=== PATIENT | female | born 1950 | race Two or more races ===

== ENCOUNTER 2024-04-05 04:20 | Inpatient (IN) | payer OTHER ==
[~2024-04-05] VITALS: Ht 167.6 cm; Wt 122.8 kg
[2024-04-05] MEDS: LABETALOL HCL 20 MG/4 ML VL IV ONE (05:07)
--- NOTE | 2024-04-05 05:18 | ED.PDOC ---
History of Present Illness HPI Comments 74 y/o F, with a Hx of uncontrolled HTN, morbid obesity, and hysterectomy, presents with c/o partial urinary retention, hematuria, dysuria, and constipation, today. Patient reports unprovoked onset of symptoms, yesterday, that has been persisting since. Patient endorses on both having a sensation of being unable to completely empty her bladder in addition to sensation to have a bowel movement but being unable to produce one. Patient, upon arrival to ED triage, was hypertensive, with a blood pressure of 235/103. Patient states on no medication placement or use, due to not seeing medical providers frequently by personal choice. Patient denies having any chest or flank pain, nausea, vomi ting, diarrhea, fever, chills, headache, vision or speech changes, or other associated symptoms or modifiers at this time. Chief Complaint: Urinary Time Seen by MD: 04:45 Reviewed Notes: Nurses Notes, Medications, Allergies Allergies: Coded Allergies: NO KNOWN ALLERGIES (Unverified , 04/05/24) Information Source: Patient Mode of Arrival: Ambulatory Severity: Moderate Timing: Days Duration: Since onset Prehospital treatment: None Past Medical History PAST MEDICAL HISTORY: HTN Past Medical History (Other): morbid obesity Surgical History: Hysterectomy [employer] History: Denies all [employer] Hx Family History Family History: Unknown Social History Smoker: Non-Smoker Alcohol: Denies ETOH Use Drugs: Denies Drug Use Lives In: Home Constitutional: denies: chills, diaphoresis, fatigue, fever, malaise, sweats, weakness, others EENTM: denies: blurred vision, double vision, ear bleeding, ear discharge, ear drainage, ear pain, ear ringing, eye pain, eye redness, hearing loss, mouth pain, mouth swelling, nasal discharge, nose bleeding, nose congestion, nose pain, photophobia, tearing, throat pain, throat swelling, voice changes, others Respiratory: denies: cough, hemoptysis, orthopnea, SOB at rest, shortness of breath, SOB with excertion, stridor, wheezing, others Cardiovascular: denies: chest pain, dizzy spells, diaphoresis, Dyspnea on exertion, edema, irregular heart beat, left arm pain, lightheadedness, palpitations, PND, syncope, others Gastrointestinal: reports: constipated; denies: abdomen distended, abdominal pain, blood streaked bowels, diarrhea, dysphagia, difficulty swallowing, hematemesis, melena, nausea, poor appetite, poor fluid intake, rectal bleeding, rectal pain, vomiting, others Genitourinary: reports: dysuria, hematuria, others (partial urinary retention ); denies: abnormal vagina bleeding, burning, dyspareunia, flank pain, frequency, incontinence, pain, , vagina discharge, urgency Neurological: denies: dizziness, fainting, headache, left sided numbness, left sided weakness, numbness, paresthesia, pre-existing deficit, right sided numbness, right sided weakness, seizure, speech problems, tingling, tremors, weakness, others Musculoskeletal: denies: back pain, gout, joint pain, joint swelling, muscle pain, muscle stiffness, neck pain, others Integumetry: denies: bruises, change in color, change in hair/nails, dryness, laceration, lesions, lumps, rash, wounds, others Allergic/Immunocompromised: denies: Difficulty Healing, Frequent Infections, Hives, Itching, others Hematologic/Lymphatic: denies: anemia, blood clots, easy bleeding, easy bruising, swollen glands, others Endocrine: denies: excessive hunger, excessive sweating, excessive thirst, excessive urination, flushing, intolerance to cold, intolerance to heat, unexplained weight gain, unexplained weight loss, others Psychiatric: denies: anxiety, bipolar disorder, depression, hopeless, panic disorder, schizophrenia, sleepless, suicidal, others All Other Systems: Reviewed and Negative Physical Exam General Appearance: Moderate Distress, Obese HEENT: Normal ENT Inspection, Pharynx Normal, TMs Normal Neck: Full Range of Motion, Non-Tender, Normal, Normal Inspection Respiratory: Chest Non-Tender, Lungs Clear, No Accessory Muscle Use, No Respiratory Distress, Normal Breath Sounds Cardiovascular: No Edema, No JVD, No Murmur, No Gallop, Normal Peripheral Pulses, Regular Rate/Rhythm Breast Exam: Deferred Gastrointestinal: No Organomegaly, No Pulsatile Mass, Normal Bowel Sounds, Soft, Suprapubic (tenderness), Tenderness (suprapubic area ) Genitalia: Deferred Pelvic: Deferred Rectal: Deferred Extremities: No calf tenderness, Normal capillary refill, Normal inspection, Normal range of motion, Non-tender, No pedal edema Musculoskeletal : Apperance: Normal Neurologic: Alert, plaster pattern caster II-XII nml as Tested, No Motor Deficits, Normal Affect, Normal Mood, No Sensory Deficits Cerebellar Function: Normal Reflexes: Normal Skin: Dry, Normal Color, Warm Lymphatic: No Adenopathy Was a procedure done? Was a procedure done?: No EKG EKG : Pulse Rate (adult): 78 [place]: Normal Cardiac Rhythm: NSR Block: LBBB Hypertrophy: LAE ST: Normal Differential Dx Considerations may include: HTN emergency, uncontrolled HTN, cystitis, pyelonephritis, constipation X-Ray, Labs, Meds, VS Vital Signs Date Time Temp Pulse Resp B/P (MAP) Pulse Ox O2 Delivery O2 Flow Rate FiO2 04/05/24 05:20 223/79 04/05/24 05:18 78 04/05/24 05:15 78 04/05/24 05:07 105 249/109 04/05/24 04:57 98.8 106 14 249/109 (155) 94 98.8 04/05/24 04:30 98.9 113 20 235/103 (147) 97 Current Medications Medications (Trade) Dose Ordered Sig/Daron Route Start Time Stop Time Status Last Admin Labetalol HCl (Labetalol HCl) 20 mg ONCE ONCE IV 04/05/24 05:15 04/05/24 05:16 DC 04/05/24 05:07 Fentanyl Citrate 100 mcg ONCE ONCE IV 04/05/24 05:15 04/05/24 05:16 DC 04/05/24 05:20 Labs are pending including alcohol level. Head CT and abdominal CT are pending. The patient will be endorsed to Dr. Vasquez. Time of 1ST Reevaluation: 05:15 Reevaluation 1ST: Unchanged Patient Education/Counseling: Diagnosis, Treatment Family Education/Counseling: No Family Present Departure 1 Departure Time of Disposition: 05:48 Impression: Primary Impression: Altered level of consciousness Additional Impressions: Metabolic encephalopathy Hypertension Qualified Codes: I10 - Essential (primary) hypertension Abdominal distention Disposition: 30 STILL A PATIENT Condition: Guarded Critical Care Note Critical Care Time?: Yes (35 min-critical care time only) Stability Stability form required: No Heart Score Heart Score: Heart Score Response (Comments) Value History Slightly Suspicious 0 EKG N/A 0 Age >65 2 Risk Factors 1 or 2 risk factors 1 Troponin Normal limit 0 Total 3 I personally scribed for SONIA SORAINO MD ([email or web address]) on 04/05/24 at 05:18. Electronically submitted by Ra Mccain ([email or web address]). SONIA SORIANO MD Apr 05, 2024 05:18
[2024-04-05] MEDS: fentaNYL CITRATE 100 MCG/2 ML VL IV ONE (05:20)
--- NOTE | 2024-04-05 05:52 | DVH ---
CHEST RADIOGRAPH Indication: htn Technique: Single frontal view of the chest was obtained COMPARISON: None FINDINGS: Lines and Tubes: None Lungs: Clear Pleura: No effusion. No pneumothorax. Cardiomediastinal contours: Unremarkable Bones: Unremarkable IMPRESSION: No acute disease.
[2024-04-05 06:04] VITALS: PULSE 64; RESP 16; O2SAT 97
--- NOTE | 2024-04-05 06:21 | DVH ---
Exam: CT CT AB PEL WO CON-NO ORAL OR IV History: Constipation/ urinary retention Comparison Study: None available at time of dictation. Technique: Multidetector spiral CT of the abdomen and pelvis was performed from lung bases to pubic s ymphysis. Imaging was performed without intravenous contrast. Coronal and sagittal multiplanar refor mats were obtained from the axial data set by the technologist. Radiation Dose : 1. Abdomen/Pelvis: CTDIvol 26.6 mGy, DLP 1429.6 mGy*cm. Findings: Evaluation of vasculature and solid organs is limited due to lack of intravenous contrast use. Lung Bases: Lung bases are clear. Visualized portions of the heart and pericardium are unremarkable. Liver: The liver is normal in size. No focal lesions. Gallbladder and Biliary Tree: The gallbladder is unremarkable. No intrahepatic or extrahepatic bilia ry ductal dilatation. Spleen: Unremarkable Pancreas: The pancreas is grossly unremarkable. Adrenal Glands: Unremarkable Kidneys: There is moderate left and mild right hydroureteronephrosis. No intrarenal stones. GI tract: The stomach is grossly normal in appearance. No evidence of small bowel wall thickening or abnormal dilatation to suggest bowel obstruction. Sigmoid diverticulosis without acute diverticuliti s. Please note that the colon is otherwise not evaluated for mass without intravenous contrast. The appendix is not visualized, however no inflammatory changes in the right lower quadrant to suggest ac mary appendicitis. Peritoneum/mesentery/retroperitoneum. No evidence of free intraperitoneal air. No ascites. Lymph nodes: Enlarged left external iliac lymph node measuring 1.8 cm. There are enlarged retroperito gabriel lymph nodes, measuring up to 1.5 cm in short axis. Abdominal Wall: Unremarkable. Vasculature: The visualized abdominal aorta is normal in size and caliber. Evaluation of abdominal a nd pelvic vessels is limited due to lack of intravenous contrast. Urinary Bladder: Hyperdense mass noted in the posterior urinary bladder measuring 5.1 by 5.6 cm. The more superficial portion of the mass appears to be higher in density. Pelvic Organs: Status post hysterectomy. Musculoskeletal: No aggressive focal bony lesions, acute fractures or dislocation. IMPRESSION: 1. 5.6 cm dense mass in the urinary bladder worrisome for malignancy. The more superficial portion of the mass measures higher attenuation and may reflect hemorrhage. CT of the abdomen pelvis with intr avenous contrast and with delayed /excretory phase imaging is recommended to further assess the urina ry bladder. 2. Bilateral hydroureteronephrosis, left slightly greater than right. 3. Bulky retroperitoneal and enlarged left external iliac chain lymph node. These could be metastati c in etiology. If a contrast-enhanced CT does not reveal the source of any malignancy, a PET-CT is st rongly recommended for further evaluation.
--- NOTE | 2024-04-05 06:22 | ECG ---
[facility] Test Date: 2024-04-05 Test Time: 05:15:47 Pat Name: DANN THOMPSON Department: ED Room: Gender: F Distribution Operations Supervisor: MATT : 1950 Requested By: SONIA SORIANO Order Number: [id number] Reading MD: Al Alcaraz Measurements Intervals [place] Rate: 78 P: 66 RI: 194 QRS: 5 QRSD: 158 T: 175 QT: 454 QTc: 518 Interpretive Statements Sinus rhythm Probable left atrial enlargement Left bundle branch block Electronically Signed On 04-05-2024 8:29:14 PST by Al Alcaraz Please click the below link to view image of tracing.
[2024-04-05 06:39] LABS: INR 1.03 (0.9-1.15); Partial Thromboplastin Time 27.3 SEC (24.5-34.5); Prothrombin Time 10.9 sec (9.3-11.8)
[2024-04-05 06:51] LABS: Alanine Aminotransferase 11 U/L (7-40); Albumin 4.2 g/dL (3.2-4.8); Alkaline Phosphatase 78 U/L (46-116); Aspartate Aminotransferase 16 U/L (13-40); BUN/Creatinine Ratio 16.5 (10.0-20.0); Bilirubin, Total 0.6 mg/dL (0.2-1.0); Blood Urea Nitrogen 31 mg/dL (9-23); Calcium 9.7 mg/dL (8.7-10.4); Chloride 108 mmol/L (98-107); Glucose 178 mg/dL (74-106); Potassium 3.8 mmol/L (3.5-5.1); Sodium 138 mmol/L (136-145); Total Protein 7.5 g/dL (5.7-8.2)
[2024-04-05 06:57] LABS: Anion Gap 11 (5-15); Carbon Dioxide 19 mmol/L (20-31)
[2024-04-05 07:06] LABS: Basophils # (auto) 0 10 ^3/uL (0-0.2); Basophils % (auto) 0.4 % (0.0-2.0); Eosinophils # (auto) 0 10 ^3/uL (0-0.8); Hemoglobin 12.9 g/dL (12.2-16.2); Lymphocytes # (auto) 0.6 10 ^3/uL (0.4-5.4); Lymphocytes % (auto) 5.7 % (10.0-50.0); Mean Corpuscular Hemoglobin 31.2 pg (28.0-32.0); Mean Corpuscular Hgb Conc. 33.9 g/dL (32.0-36.0); Monocytes # (auto) 0.5 10 ^3/uL (0-1.3); Monocytes % (auto) 4.2 % (0.0-12.0); Neutrophils # (auto) 9.9 10 ^3/uL (1.6-8.6); Neutrophils % (auto) 89.7 % (37.0-80.0); Platelet Count (auto) 321 10^3/uL (140-450); Red Blood Cells 4.13 10^6/uL (4.0-5.20); White Blood Cell 11.1 10^3/uL (4.4-10.8)
[2024-04-05 07:27] LABS: Blood Alcohol < 3.0 mg/dL (<10)
[2024-04-05 07:50] VITALS: PULSE 71; RESP 19; O2SAT 96
--- NOTE | 2024-04-05 08:52 | ED.PDOC ---
Departure 1 Departure Time of Disposition: 08:50 (Patient with worsening ams, new malignancy. Will admit patient for further workup.) Impression: Primary Impression: Altered level of consciousness Additional Impressions: Abdominal distention Metabolic encephalopathy Hypertension Qualified Codes: I10 - Essential (primary) hypertension Hematuria Qualified Codes: R31.0 - Gross hematuria Malignancy Disposition: 09 ADMITTED INPATIENT Admit to: Med Surg Condition: Serious ALISSA AUGUSTINE MD Apr 05, 2024 08:52
--- NOTE | 2024-04-05 09:28 | DVH ---
EXAM: CT HEAD WITHOUT CONTRAST HISTORY: ams COMPARISON: None TECHNIQUE: Axial images were obtained and reformatted in coronal and sagittal planes. All CT scans at this medical facility are performed using dose modulation techniques as appropriate t o a performed exam including the following: Automated exposure control was utilized; adjustment of th e MA and/or KV according to patient size; and use of iterative reconstruction technique. CT Dose: CTDI volume is 62.53 mGy. Dose-length product is 1107.11 mGy*cm FINDINGS: Supratentorial Region: No evidence for large acute territorial ischemia. No intracranial hemorrhage is noted. Confluent white matter hypoattenuating foci are noted bilaterally, which typically reflect chronic microvascular ischemic changes. Posterior Fossa: No acute abnormality. Brainstem: Unremarkable. Sellar/Suprasellar Region: Unremarkable. Ventricles, Cisterns, Sulci: Age-appropriate. Orbits: Unremarkable. Paranasal Sinuses: Unremarkable. Mastoid Air Cells: Unremarkable. Vasculature: Unremarkable. Bones/Soft Tissues: No acute abnormality. Other: None. IMPRESSION: 1. No acute intracranial process.
[2024-04-05] MEDS ORDERED: ACETAMINOPHEN 325 MG TAB PO PRN (11:15)
[2024-04-05] MEDS ORDERED: DOCUSATE SOD 100 MG CAP PO PRN (11:15)
[2024-04-05] MEDS ORDERED: MORPHINE SULFATE INJ 2 MG/ml SYRG IV PRN ×2 (11:15→12:15)
[2024-04-05] MEDS ORDERED: NITROGLYCERIN 0.4 MG SL TAB SL PRN (11:15)
[2024-04-05 11:31] LABS: Urine Bacteria None Seen /hpf (None Seen)
[2024-04-05] MEDS: POLYETHYLENE GLYCOL 17 GM PWDR PO SCH (12:23)
[2024-04-05] MEDS: OXYBUTYNIN CHL 5 MG TAB PO SCH (12:23)
[2024-04-05] MEDS: ONDANSETRON HCL 4 MG/2 ML VIAL IV PRN (12:23)
[2024-04-05] MEDS: MORPHINE SULFATE INJ 2 MG/ml SYRG IV PRN (12:24)
[2024-04-05 12:29] LABS: Urine Blood 3+ /uL (Negative); Urine Clarity Ex.Turbid (Clear); Urine Color Red (Yellow); Urine Protein, UAD 2+ (Negative); Urine Specific Gravity 1.015 (1.001-1.035); Urine Urobilinogen Normal (Negative); Urine WBC 344 /hpf (0 - 5)
--- NOTE | 2024-04-05 12:30 | DVHINCON2 ---
Date of service: Apr 05, 2024 Referring Physician Tegan Reason for Consultation gross hematuria History of Present Illness History Source: Patient, Family, RN Notes, MD Notes Exam Limitations: No limitations HPI 74 yo female c/o dysuria, hematuria and constipation for the past few days. A judge was placed be ER staff. Pt requires CBI so I exchanged for a 20F hematuria catheter which was moderately difficult to place due to urethral stenosis. I manually irrigated out all clots with sterile water. Pt was then started on CBI. Urine cleared rapidly. She is experiencing discomfort at the urethra. She will be medicated for pain, ANTONIO Lao at the bedside. No hx of malignancy per patient. Denies recurrent UTIs. Does not take anticoagulants. Past Medical History Cardiac: HTN Past Surgical History: Hysterctomy Smoker: No Hx (Negative) Alocohol: None Drugs: None Domestic Violence: Neg Review of Systems Genitourinary: Dysuria, Hematuria, Pain H&P Exam Vital Signs Vital Signs Date Time Temp Pulse Resp B/P (MAP) Pulse Ox O2 Delivery O2 Flow Rate FiO2 04/05/24 10:01 68 97 204/124 (150) 17 04/05/24 07:50 Room Air* 0 21 04/05/24 04:57 98.8 98.8 General Appeara: Well developed, Well nourished, Normal Appearance, Mild dist ress, Obese Pulmonary/Respiratory: Normal inspection, Normal breath sounds, Chest non- tender, Lungs clear Cardiovascular/Chest: Normal inspection, Regular rate, Normal Rhythm Abdominal Exam: Normal bowel sounds, Soft, No tenderness, No hepatospenomegaly, No masses Rectal Exam: Deferred Back Exam: Normal inspection Pelvic Exam: External exam normal, Other (urethral stenosis) Neuro/Mental St: Alert, Oriented Appearance: Appropriate appearance, Appropriate insight Eye contact/ Speech: Cooperative, Good eye contact, Normal speech Skin Exam: Normal inspection, Normal color, Warm/dry Labs/Xrays [place] [id number] Ph: [phone] DIAGNOSTIC IMAGING Diagnostic Imaging Report : [id number] Signed PATIENT: DANN THOMPSON ACCT: [id number] UNIT: [id number] : 1950 LOC: ER ROOM / BED: / AGE / SEX: 74 / F ADM STATUS: REG ER SERVICE 1095 ORDERING PHYSICIAN: SONIA SORIANO MD PROCEDURE(s): ABPL - CT AB PEL WO CON-NO ORAL OR IV REASON: constipation/ urinary retention ORDER NUMBER(s): [id number], ACCESSION NUMBER(s): [id number] Exam: CT CT AB PEL WO CON-NO ORAL OR IV History: Constipation/ urinary retention Comparison Study: None available at time of dictation. Technique: Multidetector spiral CT of the abdomen and pelvis was performed from lung bases to pubic symphysis. Imaging was performed without intravenous contrast. Coronal and sagittal multiplanar reformats were obtained from the axial data set by the technologist. Radiation Dose : 1. Abdomen/Pelvis: CTDIvol 26.6 mGy, DLP 1429.6 mGy*cm. Findings: Evaluation of vasculature and solid organs is limited due to lack of intravenous contrast use. Lung Bases: Lung bases are clear. Visualized portions of the heart and pericardium are unremarkable. Liver: The liver is normal in size. No focal lesions. Gallbladder and Biliary Tree: The gallbladder is unremarkable. No intrahepatic or extrahepatic biliary ductal dilatation. Spleen: Unremarkable Pancreas: The pancreas is grossly unremarkable. Adrenal Glands: Unremarkable Kidneys: There is moderate left and mild right hydroureteronephrosis. No intrarenal stones. GI tract: The stomach is grossly normal in appearance. No evidence of small bowel wall thickening or abnormal dilatation to suggest bowel obstruction. Sigmoid diverticulosis without acute diverticulitis. Please note that the colon is otherwise not evaluated for mass without intravenous contrast. The appendix is not visualized, however no inflammatory changes in the right lower quadrant to suggest acute appendicitis. Peritoneum/mesentery/retroperitoneum. No evidence of free intraperitoneal air. No ascites. Lymph nodes: Enlarged left external iliac lymph node measuring 1.8 cm. There are enlarged retroperitoneal lymph nodes, measuring up to 1.5 cm in short axis. Abdominal Wall: Unremarkable. Vasculature: The visualized abdominal aorta is normal in size and caliber. Evaluation of abdominal and pelvic vessels is limited due to lack of intravenous contrast. Urinary Bladder: Hyperdense mass noted in the posterior urinary bladder measuring 5.1 by 5.6 cm. The more superficial portion of the mass appears to be higher in density. Pelvic Organs: Status post hysterectomy. Musculoskeletal: No aggressive focal bony lesions, acute fractures or dislocation. IMPRESSION: 1. 5.6 cm dense mass in the urinary bladder worrisome for malignancy. The more superficial portion of the mass measures higher attenuation and may reflect hemorrhage. CT of the abdomen pelvis with intravenous contrast and with delayed /excretory phase imaging is recommended to further assess the urinary bladder. 2. Bilateral hydroureteronephrosis, left slightly greater than right. 3. Bulky retroperitoneal and enlarged left external iliac chain lymph node. These could be metastatic in etiology. If a contrast-enhanced CT does not reveal the source of any malignancy, a PET-CT is strongly recommended for further evaluation. ATED BY: NEMO ARANA MD DICTATED DATE/TIME: 04/05/24618 SIGNED BY: NEMO ARANA MD SIGNED DATE/TIME: 04/05/24618 CC: Labs Test 04/05/24 08:24 04/05/24 05:59 04/05/24 05:20 Range/Units Troponin I High Sensitivity 142 *H </=34 ng/L White Blood Count 11.1 H 4.4-10.8 10^3/uL Red Blood Count 4.13 4.0-5.20 10^6/uL Hemoglobin 12.9 12.2-16.2 g/dL Hematocrit 38.0 36.0-46.0 % Mean Corpuscular Volume 92.0 80.0-100.0 fL Mean Corpuscular Hemoglobin 31.2 28.0-32.0 pg Mean Corpuscular Hemoglobin Concent 33.9 32.0-36.0 g/dL Red Cell Distribution Width 14.0 11.8-14.3 % Platelet Count 321 140-450 10^3/uL Mean Platelet Volume 8.8 6.9-10.8 fL Neutrophils (%) (Auto) 89.7 H 37.0-80.0 % Lymphocytes (%) (Auto) 5.7 L 10.0-50.0 % Monocytes (%) (Auto) 4.2 0.0-12.0 % Eosinophils (%) (Auto) 0.0 0.0-7.0 % Basophils (%) (Auto) 0.4 0.0-2.0 % Neutrophils # (Auto) 9.9 H 1.6-8.6 10 ^3/uL Lymphocytes # (Auto) 0.6 0.4-5.4 10 ^3/uL Monocytes # (Auto) 0.5 0-1.3 10 ^3/uL Eosinophils # (Auto) 0 0-0.8 10 ^3/uL Basophils # (Auto) 0 0-0.2 10 ^3/uL Nucleated Red Blood Cells 0.0 % Prothrombin Time 10.9 9.3-11.8 sec Prothrombin Time INR 1.03 0.9-1.15 Activated Partial Thromboplast Time 27.3 24.5-34.5 SEC Sodium Level 138 136-145 mmol/L Potassium Level 3.8 3.5-5.1 mmol/L Chloride Level 108 H 98-107 mmol/L Carbon Dioxide Level 19 L 20-31 mmol/L Anion Gap 11 5-15 Blood Urea Nitrogen 31 H 9-23 mg/dL Creatinine 1.88 H 0.550-1.02 mg/dL Glomerular Filtration Rate Calc 28 >90 mL/min BUN/Creatinine Ratio 16.5 10.0-20.0 Serum Glucose 178 H 74-106 mg/dL Calcium Level 9.7 8.7-10.4 mg/dL Total Bilirubin 0.6 0.2-1.0 mg/dL Aspartate Amino Transferase (AST) 16 13-40 U/L Alanine Aminotransferase (ALT) 11 7-40 U/L Alkaline Phosphatase 78 46-116 U/L B-Type Natriuretic Peptide 236.94 0-100 pg/mL Total Protein 7.5 5.7-8.2 g/dL Albumin 4.2 3.2-4.8 g/dL Plasma/Serum Blood Alcohol < 3.0 <10 mg/dL Assessment/Plan Problem List: (1) Gross hematuria (2) Hematuria (3) Malignancy (4) Abdominal distention (5) Hypertension (6) Altered level of consciousness (7) Metabolic encephalopathy Plan [address] way judge CBI monitor H&H medically optimize. will need cysto and TURBT arranged likely on outpt basis. will follow Plan discussed with: Patient, Other JABARI MCKEON NP Apr 05, 2024 12:30
[2024-04-05] MEDS: amLODIPine BESYLATE 5 MG TAB PO SCH (12:42)
[2024-04-05] MEDS: HYDROcodone-ACET 5/325MG TAB PO PRN (12:44)
--- NOTE | 2024-04-05 13:17 | DVHINCON2 ---
Date of service: Apr 05, [address] Bethany tilley Reason for Consultation Hematuria and suspicion of bladder cancer History of Present Illness 74 years old black female who gives a history of diabetes and hypertension. She is having hematuria off and on for the last couple of months. And is having some pain in the pelvic area. She had a CT scan of the abdomen pelvis without contrast which showed a 5.6 cm dense mass in the urinary bladder worrisome for malignancy. Bilateral hydroureteronephrosis left slightly greater than right Bulky retroperitoneal and enlarged left external iliac chain lymph node may be metastatic Chest x-ray was unremarkable CT of the brain without contrast was unremarkable White count 11.1 hemoglobin 12.9 platelets 321 within normal differential BUN 31 creatinine 1.8 total protein 7.5 albumin 4.2 normal liver functions PT/INR 1.03 and PTT 27.3 Past Medical History History of diabetes Hypertension Obesity Uterine cancer and had total abdominal hysterectomy 1991 Family History Unremarkable for malignancy or hematological disorders Social History No smoking. Occasional wine. She is Allergies: Coded Allergies: NO KNOWN ALLERGIES (Unverified , 04/05/24) Current Medications Current Medications Medications (Trade) Dose Ordered Sig/Daron Route PRN Reason Start Time Stop Time Status Last Admin Acetaminophen/ Hydrocodone Bitart ([place] 5/325MG Tab) 1 tab Q4HP PRN PO MODERATE PAIN (4-6 PAIN SCALE) 04/05/24 11:15 04/05/24 12:44 Ondansetron HCl (Zofran) 4 mg Q4HP PRN IV NAUSEA / VOMITING 04/05/24 11:15 04/05/24 12:23 Docusate Sodium (Colace Capsule) 100 mg BIDPRN PRN PO FOR CONSTIPATION 04/05/24 11:15 Acetaminophen (Tylenol Tablet) 650 mg Q6HP PRN PO PAIN SCALE 1-3 OR TEMP>100.4 04/05/24 11:15 Morphine Sulfate 2 mg Q4HPRN PRN IV SEVERE PAIN (7-10 PAIN SCALE) 04/05/24 11:15 04/05/24 12:16 DC Nitroglycerin (Ntrostat Sublingual) 0.4 mg Q5MINP PRN SL FOR CHEST PAIN 04/05/24 11:15 Morphine Sulfate 2 mg Q30M PRN IV FOR CHEST PAIN 04/05/24 11:15 04/05/24 12:24 Polyethylene Glycol (Miralax 17GM Powder) 17 gm DAILY PO 04/05/24 11:15 04/05/24 12:23 Morphine Sulfate 2 mg Q4HPRN PRN IV SEVERE PAIN (7-10 PAIN SCALE) 04/05/24 12:15 Oxybutynin Chloride (Ditropan Tablet) 5 mg Q12HR PO 04/05/24 12:15 04/05/24 12:23 Amlodipine Besylate (Norvasc Tablet) 10 mg DAILY PO 04/05/24 12:30 04/05/24 12:42 Hydralazine HCl (Apresoline Injection) 10 mg Q6HP PRN IV SBP>150 04/05/24 12:30 Vital Signs Vital Signs Date Time Temp Pulse Resp B/P (MAP) Pulse Ox O2 Delivery O2 Flow Rate FiO2 04/05/24 12:42 212/89 04/05/24 12:24 69 20 04/05/24 12:03 94 04/05/24 07:50 Room Air* 0 21 04/05/24 04:57 98.8 98.8 Physical Exam GENERAL: The patient is a moderately built and nourished ,in no distress, alert and oriented. Obese black female HEAD AND NECK: Unremarkable. No neck nodes or masses. Conjunctivae: Unremarkable for any mucosal hemorrhage or inflammation. Thyroid is nonpalpable. Throat is unremarkable. SPINE: No deformities or tenderness. CHEST: Chest wall, no tenderness. LUNGS: Clear. CARDIOVASCULAR: Regular sinus rhythm. No murmurs or gallops. ABDOMEN: No organomegaly, tenderness or ascites. Bowel sounds present. Has a Duarte catheter EXTREMITIES: No clubbing, edema or cyanosis. Peripheral pulses palpable. No calf tenderness. LYMPHATICS: No significant lymphadenopathy. NEUROLOGIC: No focal neurological deficits. SKIN: Unremarkable for any petechiae, purpura, or ecchymosis. Psych: No abnormalities Available data reviewed Labs/Diagnostic Data Labs Test 04/05/24 08:24 04/05/24 05:59 04/05/24 05:20 Range/Units Troponin I High Sensitivity 142 *H </=34 ng/L Urine Color Red H Yellow Urine Clarity Ex.turbid Clear Urine pH 6.0 5.0-9.0 Urine Specific [place] 1.015 1.001-1.035 Urine Protein 2+ H Negative Urine Ketones Negative Negative Urine Blood 3+ H Negative /uL Urine Nitrite Negative Negative Urine Bilirubin Negative Negative Urine Urobilinogen Normal Negative mg/dL Urine Leukocyte Esterase 1+ Negative /uL Urine RBC 2699 0 - 4 /hpf Urine WBC 344 0 - 5 /hpf Urine Squamous Epithelial Cells None seen <5 /hpf Urine Bacteria None seen None Seen /hpf Urine Glucose Normal Normal mg/dL White Blood Count 11.1 H 4.4-10.8 10^3/uL Red Blood Count 4.13 4.0-5.20 10^6/uL Hemoglobin 12.9 12.2-16.2 g/dL Hematocrit 38.0 36.0-46.0 % Mean Corpuscular Volume 92.0 80.0-100.0 fL Mean Corpuscular Hemoglobin 31.2 28.0-32.0 pg Mean Corpuscular Hemoglobin Concent 33.9 32.0-36.0 g/dL Red Cell Distribution Width 14.0 11.8-14.3 % Platelet Count 321 140-450 10^3/uL Mean Platelet Volume 8.8 6.9-10.8 fL Neutrophils (%) (Auto) 89.7 H 37.0-80.0 % Lymphocytes (%) (Auto) 5.7 L 10.0-50.0 % Monocytes (%) (Auto) 4.2 0.0-12.0 % Eosinophils (%) (Auto) 0.0 0.0-7.0 % Basophils (%) (Auto) 0.4 0.0-2.0 % Neutrophils # (Auto) 9.9 H 1.6-8.6 10 ^3/uL Lymphocytes # (Auto) 0.6 0.4-5.4 10 ^3/uL Monocytes # (Auto) 0.5 0-1.3 10 ^3/uL Eosinophils # (Auto) 0 0-0.8 10 ^3/uL Basophils # (Auto) 0 0-0.2 10 ^3/uL Nucleated Red Blood Cells 0.0 % Prothrombin Time 10.9 9.3-11.8 sec Prothrombin Time INR 1.03 0.9-1.15 Activated Partial Thromboplast Time 27.3 24.5-34.5 SEC Sodium Level 138 136-145 mmol/L Potassium Level 3.8 3.5-5.1 mmol/L Chloride Level 108 H 98-107 mmol/L Carbon Dioxide Level 19 L 20-31 mmol/L Anion Gap 11 5-15 Blood Urea Nitrogen 31 H 9-23 mg/dL Creatinine 1.88 H 0.550-1.02 mg/dL Glomerular Filtration Rate Calc 28 >90 mL/min BUN/Creatinine Ratio 16.5 10.0-20.0 Serum Glucose 178 H 74-106 mg/dL Calcium Level 9.7 8.7-10.4 mg/dL Total Bilirubin 0.6 0.2-1.0 mg/dL Aspartate Amino Transferase (AST) 16 13-40 U/L Alanine Aminotransferase (ALT) 11 7-40 U/L Alkaline Phosphatase 78 46-116 U/L B-Type Natriuretic Peptide 236.94 0-100 pg/mL Total Protein 7.5 5.7-8.2 g/dL Albumin 4.2 3.2-4.8 g/dL Plasma/Serum Blood Alcohol < 3.0 <10 mg/dL Assessment 1. Hematuria with a bladder mass and extensive retroperitoneal lymphadenopathy with negative CT of the brain and chest x-ray. May rule out bladder carcinoma 2. Diabetes 3. Hypertension 4. Obesity Plan/Recommendation Cystoscopic evaluation And TURBT. The patient is being evaluated by the urologist Will see the patient after the pathology report is available Plan discussed with: Patient ERIC KRAUS MD Apr 05, 2024 13:17
[2024-04-05] MEDS: hydrALAZINE HCL 20 MG/ML VL IV PRN (13:19)
[2024-04-05] MEDS: METOPROLOL TARTRATE 25 MG TAB PO SCH (17:38)
[2024-04-05 21:29] VITALS: PULSE 68; RESP 17; O2SAT 95
[2024-04-05 23:32] VITALS: BP 156/59; PULSE 70; RESP 18; TEMP 99; O2SAT 97
[2024-04-06] VITALS (9 sets, daily range): BP systolic 156–187; BP diastolic 45–59; PULSE 53–72; RESP 17–18; TEMP 98–99.7; O2SAT 92–97
--- NOTE | 2024-04-06 00:19 | DVHHP2 ---
AUNG MCCONNELL RENTAL CLERK 04/06/24 0019: History of Present Illness Reason for Visit: dysuria History of Present Illness 74 year old female presents with c/o lower abdominal pain, distention and uri nary discomfort. Indwelling f/c placed in the ED with CBI, which improved symptoms. Patient deneis history of cancer, and being on anticoagulation therapy. Patient denies fevers, chills, headaches, shortness of breath, chest pain, chest palpitations, nausea, vomiting. Cardiovascular: HTN Endocrine: Diabetes Smoke: No ALCOHOL: none Drugs: None Lives: with Family Review of Systems Constitutional: No: Fever, Chills, Sweats, Weakness, Malaise, Other Eyes: No: Pain, Vision change, Conjunctivae inflammation, Eyelid inflammation, Other, Redness ENT: No: Ear pain, Ear discharge, Nose pain, Nose discharge, Nose congestion, Mouth pain, Mouth swelling, Throat pain, Throat swelling, Other Respiratory: No: Cough, Dry, Shortness of breath, SOB with excertion, Wheezing, Hemoptysis, Pleuritic Pain, Sputum, Wheezing, Other Cardiovascular: No: Chest Pain, Palpitations, Orthopnea, Paroxysmal Noc. Dyspne a, Edema, Lt Headedness, Other Gastrointestinal: Abdominal Pain; No: Nausea, Vomiting, Diarrhea, Constipation, Melena, Hematochezia, Other Genitourinary: Dysuria; No Frequency, No Incontinence; Hematuria; No Retention, No Other Musculoskeletal: No: other, neck pain, shoulder pain, arm pain, back pain, hand pain, leg pain, foot pain Skin: No: Rash, Lesions, Jaundice, Bruising, Other Neurological: No: Weakness, Numbness, Incoordination, Change in speech, Confusion, Seizures, Other Allergies: Coded Allergies: NO KNOWN ALLERGIES (Unverified , 04/05/24) Medications Current Medications Medications Dose Ordered Sig/Daron Route Start Time Stop Time Status Last Admin Dose Admin Acetaminophen/ Hydrocodone Bitart 1 tab Q4HP PRN PO 04/05/24 11:15 04/05/24 12:44 1 TAB Ondansetron HCl 4 mg Q4HP PRN IV 04/05/24 11:15 04/05/24 12:23 4 MG Docusate Sodium 100 mg BIDPRN PRN PO 04/05/24 11:15 Acetaminophen 650 mg Q6HP PRN PO 04/05/24 11:15 Nitroglycerin 0.4 mg Q5MINP PRN SL 04/05/24 11:15 Morphine Sulfate 2 mg Q30M PRN IV 04/05/24 11:15 04/05/24 12:24 2 MG Polyethylene Glycol 17 gm DAILY PO 04/05/24 11:15 04/05/24 12:23 17 GM Morphine Sulfate 2 mg Q4HPRN PRN IV 04/05/24 12:15 Oxybutynin Chloride 5 mg Q12HR PO 04/05/24 12:15 04/05/24 22:07 5 MG Amlodipine Besylate 10 mg DAILY PO 04/05/24 12:30 04/05/24 12:42 10 MG Hydralazine HCl 10 mg Q6HP PRN IV 04/05/24 12:30 04/05/24 19:06 10 MG Metoprolol Tartrate 25 mg BID PO 04/05/24 16:45 04/05/24 22:12 25 MG Exam Vital Signs Vital Signs Date Time Temp Pulse Resp B/P (MAP) Pulse Ox O2 Delivery O2 Flow Rate FiO2 04/05/24 22:47 98.4 55 24 156/45 (82) 95 98.4 04/05/24 21:29 Room Air* 0 21 General Appearance: Alert, Oriented X3, Cooperative, mild distress HEENT: Atraumatic, PERRLA, EOMI Respiratory: Clear to auscultation, Normal air movement Cardiovascular: Regular rate, Normal S1, Normal S2 Abdominal: Normal bowel sounds, Soft, No tenderness Extremities: No cyanosis, No edema Skin: No rashes, No breakdown Neuro: Normal speech, Strength at 5/5 X4 ext Psych/Mental Status: Mental status NL, Mood NL Labs/Xrays Labs Test 04/05/24 08:24 04/05/24 05:59 04/05/24 05:20 Range/Units Troponin I High Sensitivity 142 *H </=34 ng/L Urine Color Red H Yellow Urine Clarity Ex.turbid Clear Urine pH 6.0 5.0-9.0 Urine Specific [place] 1.015 1.001-1.035 Urine Protein 2+ H Negative Urine Ketones Negative Negative Urine Blood 3+ H Negative /uL Urine Nitrite Negative Negative Urine Bilirubin Negative Negative Urine Urobilinogen Normal Negative mg/dL Urine Leukocyte Esterase 1+ Negative /uL Urine RBC 2699 0 - 4 /hpf Urine WBC 344 0 - 5 /hpf Urine Squamous Epithelial Cells None seen <5 /hpf Urine Bacteria None seen None Seen /hpf Urine Glucose Normal Normal mg/dL White Blood Count 11.1 H 4.4-10.8 10^3/uL Red Blood Count 4.13 4.0-5.20 10^6/uL Hemoglobin 12.9 12.2-16.2 g/dL Hematocrit 38.0 36.0-46.0 % Mean Corpuscular Volume 92.0 80.0-100.0 fL Mean Corpuscular Hemoglobin 31.2 28.0-32.0 pg Mean Corpuscular Hemoglobin Concent 33.9 32.0-36.0 g/dL Red Cell Distribution Width 14.0 11.8-14.3 % Platelet Count 321 140-450 10^3/uL Mean Platelet Volume 8.8 6.9-10.8 fL Neutrophils (%) (Auto) 89.7 H 37.0-80.0 % Lymphocytes (%) (Auto) 5.7 L 10.0-50.0 % Monocytes (%) (Auto) 4.2 0.0-12.0 % Eosinophils (%) (Auto) 0.0 0.0-7.0 % Basophils (%) (Auto) 0.4 0.0-2.0 % Neutrophils # (Auto) 9.9 H 1.6-8.6 10 ^3/uL Lymphocytes # (Auto) 0.6 0.4-5.4 10 ^3/uL Monocytes # (Auto) 0.5 0-1.3 10 ^3/uL Eosinophils # (Auto) 0 0-0.8 10 ^3/uL Basophils # (Auto) 0 0-0.2 10 ^3/uL Nucleated Red Blood Cells 0.0 % Prothrombin Time 10.9 9.3-11.8 sec Prothrombin Time INR 1.03 0.9-1.15 Activated Partial Thromboplast Time 27.3 24.5-34.5 SEC Sodium Level 138 136-145 mmol/L Potassium Level 3.8 3.5-5.1 mmol/L Chloride Level 108 H 98-107 mmol/L Carbon Dioxide Level 19 L 20-31 mmol/L Anion Gap 11 5-15 Blood Urea Nitrogen 31 H 9-23 mg/dL Creatinine 1.88 H 0.550-1.02 mg/dL Glomerular Filtration Rate Calc 28 >90 mL/min BUN/Creatinine Ratio 16.5 10.0-20.0 Serum Glucose 178 H 74-106 mg/dL Calcium Level 9.7 8.7-10.4 mg/dL Total Bilirubin 0.6 0.2-1.0 mg/dL Aspartate Amino Transferase (AST) 16 13-40 U/L Alanine Aminotransferase (ALT) 11 7-40 U/L Alkaline Phosphatase 78 46-116 U/L B-Type Natriuretic Peptide 236.94 0-100 pg/mL Total Protein 7.5 5.7-8.2 g/dL Albumin 4.2 3.2-4.8 g/dL Plasma/Serum Blood Alcohol < 3.0 <10 mg/dL Assessment/Plan Assessment/Plan Obstructive uropathy with bilateral hydronephrosis Bladder mass, new onset Hematuria Dm Hypertension Elevated troponin Plan Admit telemetry Urology consult. CBI. Consult oncology. Cardiology consult. Echocardiogram. As needed antihypertensives for optimal BP management. Blood glucose checks ACHS with regular insulin moderate dosing sliding scale coverage for optimal glycemic management. Gi PPX pepcid / DVT ppx SCDs Plan discussed with: Patient Date of Service: Apr 06, 2024 Billing Provider: DIANA BOBO MD Common Visit Codes: NOT BILLABLE DIANA BOBO MD 04/06/24 1415: Review of Systems Allergies: Coded Allergies: NO KNOWN ALLERGIES (Unverified , 04/05/24) Additional Comments Additional Comments Additional Comments 74-year-old female with a known history of diabetes mellitus type 2, hypertension, morbid obesity class three who presented to the hospital with a intermittent hematuria on and off for last two weeks now with a dysuria hematuria found to have 1. Bladder mass with hematuria and retroperitoneal as well as left iliac lymphadenopathy highly suspicious for malignancy 2. Gross hematuria currently on CBI 3. Diabetes mellitus type 2 4. Hypertension 5. Morbid obesity class three -continue bladder irrigation, continuing IV antibiotics, follow up Neurology recommendation and Hematology Oncology recommendation. AUNG MCCONNELL NP Apr 06, 2024 00:19 DIANA BOBO MD Apr 06, 2024 14:15
[2024-04-06 05:03] LABS: Basophils # (auto) 0.1 10 ^3/uL (0-0.2); Basophils % (auto) 0.8 % (0.0-2.0); Eosinophils # (auto) 0.1 10 ^3/uL (0-0.8); Eosinophils % (auto) 0.9 % (0.0-7.0); Hemoglobin 11.5 g/dL (12.2-16.2); Lymphocytes # (auto) 2.3 10 ^3/uL (0.4-5.4); Lymphocytes % (auto) 21.5 % (10.0-50.0); Mean Corpuscular Hgb Conc. 33.7 g/dL (32.0-36.0); Monocytes # (auto) 0.9 10 ^3/uL (0-1.3); Monocytes % (auto) 8.9 % (0.0-12.0); Neutrophils # (auto) 7.1 10 ^3/uL (1.6-8.6); Neutrophils % (auto) 67.9 % (37.0-80.0); Nucleated Red Blood Cells % 0.1 %; Platelet Count (auto) 277 10^3/uL (140-450); Red Blood Cells 3.69 10^6/uL (4.0-5.20); Red Cell Distribution Width 14.4 % (11.8-14.3); White Blood Cell 10.5 10^3/uL (4.4-10.8)
[2024-04-06 05:26] LABS: Alanine Aminotransferase 11 U/L (7-40); Albumin 3.4 g/dL (3.2-4.8); Alkaline Phosphatase 63 U/L (46-116); Anion Gap 8 (5-15); Aspartate Aminotransferase 20 U/L (13-40); BUN/Creatinine Ratio 13.8 (10.0-20.0); Bilirubin, Total 0.4 mg/dL (0.2-1.0); Blood Urea Nitrogen 40 mg/dL (9-23); Calcium 9.4 mg/dL (8.7-10.4); Carbon Dioxide 22 mmol/L (20-31); Chloride 107 mmol/L (98-107); Glucose 127 mg/dL (74-106); Potassium 4.3 mmol/L (3.5-5.1); Sodium 137 mmol/L (136-145); Total Protein 6.2 g/dL (5.7-8.2)
--- NOTE | 2024-04-06 08:59 | DVH ---
RENAL ULTRASOUND CLINICAL HISTORY: hydronephrosis, hematuria TECHNIQUE: Multiple ultrasound images of the kidneys and bladder were obtained. COMPARISON: None FINDINGS: The right kidney measures 9.1 cm in length. The left kidney measures 11.6 cm. There is mild left ryan l hydronephrosis. There is no sonographic evidence of nephrolithiasis. There is no right renal hydro nephrosis. There is a Duarte catheter within the bladder which is collapsed limiting evaluation. IMPRESSION: 1. Mild left renal hydronephrosis. There is no sonographic evidence of nephrolithiasis. HS:Y
[2024-04-06] MEDS: cefTRIAXone 1GM/50ML D5W 50 ML IV SCH (14:44)
--- NOTE | 2024-04-06 17:06 | DVHINCON2 ---
HISTORY OF PRESENT ILLNESS: A 74-year-old lady with a history of bladder distention and abdominal pain. She was found to have mildly elevated troponins. Cardiac evaluation was requested. No history of coronary artery disease. She has a history of hypertension. No cardiac problems. No chest pain, nausea, vomiting, diaphoresis. She denies any history of congestive heart failure. FAMILY HISTORY: Negative. SOCIAL HISTORY: Nondrinker, nonsmoker. She is a retired teacher. ALLERGIES: No allergies. REVIEW OF SYSTEMS: CONSTITUTIONAL: Negative. ENT: Negative. CARDIAC: Negative. RESPIRATORY: Negative. GASTROINTESTINAL: Negative. GENITOURINARY: As noted above. MUSCULOSKELETAL: Negative. SKIN: Negative. NEUROLOGICAL: Negative. ALLERGIES: Negative. PSYCHIATRIC: Negative. PHYSICAL EXAMINATION: GENERAL: She is awake and responsive, no acute distress. VITAL SIGNS: Her blood pressure is stable at ____, respiratory rate of ____. HEENT: Otherwise, unremarkable. Orally well hydrated. NECK: Trachea central. Neck supple. Thyroid is not palpable. No jugular venous distention, no bruits. LUNGS: Reveal good air entry. No rales or rhonchi. HEART: Reveals regular S1, S2, soft S4. ABDOMEN: Unremarkable. EXTREMITIES: Reveal adequate perfusion without clubbing or cyanosis, no significant edema. NEUROLOGIC: She appears to be intact without focal neurologic deficits. INTEGUMENTARY: Otherwise, within normal limits. LABORATORY DATA: Her chemistry panel is for the most part normal. Her creatinine was elevated at 1.8, and now it is up to 2.89. Troponins are mildly elevated at 142. WBC is 10,000, hemoglobin and hematocrit 11 and 34 respectively. EKG shows sinus rhythm, nonspecific changes. IMPRESSION: Hypertension. Increased body mass index. Bladder distention. The patient has mild troponin elevation probably secondary to demand ischemia. No history of other significant risk factors other than hypertension. No significant symptoms of an acute coronary syndrome. RECOMMENDATIONS: We will add Norvasc for blood pressure control. Otherwise, no further cardiac testing needed at this time. MD GLEN Mark/DIANA/JANN TID: [id number] RECEIPT: [id number]
[2024-04-07] VITALS (7 sets, daily range): BP systolic 117–163; BP diastolic 49–79; PULSE 60–78; RESP 16–18; TEMP 98.7–100.1; O2SAT 95–96
[2024-04-07] MEDS: amLODIPine BESYLATE 5 MG TAB PO SCH (08:24)
[2024-04-07] MEDS ORDERED: AMLO1TAB23 PO (15:17)
[2024-04-07] MEDS ORDERED: NALO4SPR2 (15:18)
[2024-04-07] MEDS ORDERED: MET25T PO (15:18)
[2024-04-07] MEDS ORDERED: HYDR-4902 PO (15:18)
--- NOTE | 2024-04-07 15:23 | DVHDS2 ---
Discharge Summary Date of Admission Apr 05, 2024 at 11:08 Date of Discharge: Apr 07, 2024 Labs/Diagnostic Data: Laboratory Results Test 04/06/24 04:38 04/05/24 08:24 04/05/24 05:59 04/05/24 05:20 White Blood Count 10.5 10^3/uL (4.4-10.8) Red Blood Count 3.69 10^6/uL (4.0-5.20) Hemoglobin 11.5 g/dL (12.2-16.2) Hematocrit 34.0 % (36.0-46.0) Mean Corpuscular Volume 92.0 fL (80.0-100.0) Mean Corpuscular Hemoglobin 31.0 pg (28.0-32.0) Mean Corpuscular Hemoglobin Concent 33.7 g/dL (32.0-36.0) Red Cell Distribution Width 14.4 % (11.8-14.3) Platelet Count 277 10^3/uL (140-450) Mean Platelet Volume 8.3 fL (6.9-10.8) Neutrophils (%) (Auto) 67.9 % (37.0-80.0) Lymphocytes (%) (Auto) 21.5 % (10.0-50.0) Monocytes (%) (Auto) 8.9 % (0.0-12.0) Eosinophils (%) (Auto) 0.9 % (0.0-7.0) Basophils (%) (Auto) 0.8 % (0.0-2.0) Neutrophils # (Auto) 7.1 10 ^3/uL (1.6-8.6) Lymphocytes # (Auto) 2.3 10 ^3/uL (0.4-5.4) Monocytes # (Auto) 0.9 10 ^3/uL (0-1.3) Eosinophils # (Auto) 0.1 10 ^3/uL (0-0.8) Basophils # (Auto) 0.1 10 ^3/uL (0-0.2) Nucleated Red Blood Cells 0.1 % Sodium Level 137 mmol/L (136-145) Potassium Level 4.3 mmol/L (3.5-5.1) Chloride Level 107 mmol/L (98-107) Carbon Dioxide Level 22 mmol/L (20-31) Anion Gap 8 (5-15) Blood Urea Nitrogen 40 mg/dL (9-23) Creatinine 2.89 mg/dL (0.550-1.02) Glomerular Filtration Rate Calc 17 mL/min (>90) BUN/Creatinine Ratio 13.8 (10.0-20.0) Serum Glucose 127 mg/dL (74-106) Calcium Level 9.4 mg/dL (8.7-10.4) Total Bilirubin 0.4 mg/dL (0.2-1.0) Aspartate Amino Transferase (AST) 20 U/L (13-40) Alanine Aminotransferase (ALT) 11 U/L (7-40) Alkaline Phosphatase 63 U/L (46-116) Total Protein 6.2 g/dL (5.7-8.2) Albumin 3.4 g/dL (3.2-4.8) Troponin I High Sensitivity 142 ng/L (</=34) Urine Color Red (Yellow) Urine Clarity Ex.turbid (Clear) Urine pH 6.0 (5.0-9.0) Urine Specific [place] 1.015 (1.001-1.035) Urine Protein 2+ (Negative) Urine Ketones Negative (Negative) Urine Blood 3+ /uL (Negative) Urine Nitrite Negative (Negative) Urine Bilirubin Negative (Negative) Urine Urobilinogen Normal mg/dL (Negative) Urine Leukocyte Esterase 1+ /uL (Negative) Urine RBC 2699 /hpf (0 - 4) Urine WBC 344 /hpf (0 - 5) Urine Squamous Epithelial Cells None seen /hpf (<5) Urine Bacteria None seen /hpf (None Seen) Urine Glucose Normal mg/dL (Normal) Prothrombin Time 10.9 sec (9.3-11.8) Prothrombin Time INR 1.03 (0.9-1.15) Activated Partial Thromboplast Time 27.3 SEC (24.5-34.5) B-Type Natriuretic Peptide 236.94 pg/mL (0-100) Plasma/Serum Blood Alcohol < 3.0 mg/dL (<10) Other Laboratory Tests 04/06/24 04:38 Brief Hx & Hospital Course: 74-year-old female with a known history of diabetes mellitus type 2, hypertension, morbid obesity class three who presented to the hospital with a intermittent hematuria on and off for last two weeks now with a dysuria hematuria found to have bladder mass with retroperitoneal as well as left iliac lymphadenopathy highly suspicious for malignancy. Patient also had gross hematuria, status post three way catheter status post CVA. Patient's hematuria resolves. Patient was seen by Urology as well as Hematology Oncology. Urology cleared the patient for discharge with outpatient follow up with the 1- 2 weeks for cystoscopy with TURBT. Patient needs to follow up with Dr. De Guzman in the as well. Patient was seen by Cardiology Dr. Alcaraz, elevated troponin was suspected secondary to demand ischemia secondary to uncontrolled hypertension. Patient is was given hypertensive meds has been. Patient is currently stable to be discharged. Condition at Discharge: Stable Final Diagnosis/Problems List 74-year-old female with a known history of diabetes mellitus type 2, hypertension, morbid obesity class three who presented to the hospital with a intermittent hematuria on and off for last two weeks now with a dysuria hematuria found to have 1. Bladder mass with hematuria and retroperitoneal as well as left iliac lymphadenopathy highly suspicious for malignancy, outpatient follow up with Dr. Cristino Chin 2. Gross hematuria status post three way catheter, status post CBI, currently resolved 3. Diabetes mellitus type 2 4. Hypertension 5. Morbid obesity class III Discharge Disposition: Home SNF Discharge Will this Physician continue t: No Discharge Instruct/Medications Diet: Cardiac 2g Na,low cholest Diet comment: 1999 ADA diet Activity: See Comment Activity comment: No driving, no signing legal documents, no playing on heavy machinery while on narcotics Follow Up/Referral: Follow up with the PCP in 1-2 weeks Follow up with Dr. Cristino Chin outpatient in one week Follow up with the Urology for cystoscopy with TURBT outpatient within one week Medications: Keflex, [place], Narcan, metoprolol tartrate, amlodipine as prescribed New Medications: Amlodipine Besylate (Amlodipine Besylate) 10 Mg Tab 1 TAB PO DAILY, #30 TAB 5 Refills Cephalexin Monohydrate (Cephalexin) 500 Mg Cap 1 CAP PO TID for 3 Days, #9 CAP Hydrocodone-Acetaminophen (Hydrocodone Bitartrate/AC 5-325 mg) 1 Tab Tab 1 TAB PO Q8HP PRN, #10 TAB Naloxone HCl (Narcan) 4 Mg/0.1 Ml Spr 4 MG NA [employer], #2 SPRAY Metoprolol Tartrate (Lopressor) 25 Mg Tb 25 MG PO BID, #60 TAB Discharge Statement: "Patient was advised to return to the ER or call 911 if any headaches, dizziness, shortness of breath, chest pain, abdominal pain, bleeding, fevers, or worsening of medical condition. Patient was counseled about treatment plan, medications, possible side effects, patientverbalized understanding. All questions were answered to the best of my ability. This discharge took greater then 30 minutes in planning, reviewing documentation, counseling the patient, and discussing with other team members." ASSESSMENT ASSESSMENT Assessment 74-year-old female with a known history of diabetes mellitus type 2, hypertension, morbid obesity class three who presented to the hospital with a intermittent hematuria on and off for last two weeks now with a dysuria hematuria found to have 1. Bladder mass with hematuria and retroperitoneal as well as left iliac lymphadenopathy highly suspicious for malignancy, outpatient follow up with Dr. Cristino Chin 2. Gross hematuria status post three way catheter, status post CBI, currently resolved 3. Diabetes mellitus type 2 4. Hypertension 5. Morbid obesity class III -continue bladder irrigation, co Date of Service: Apr 07, 2024 Billing Provider: DIANA BOBO MD Common Visit Codes: NOT BILLABLE DIANA BOBO MD Apr 07, 2024 15:23
[2024-04-07] MEDS ORDERED: CEPH500C PO (15:24)
--- NOTE | 2024-04-13 12:09 | DVHSR ---
APPROVED REPORT EXAM: LIMITED Two-dimensional and M-mode echocardiogram with Doppler and color Doppler. Blood Pressure: 204/124 mmHg INDICATION elevated trop RISK FACTORS Obesity: Height: 5'6, Weight: 256 DIMENSIONS LVDd4.2 (3.8-5.7cm)LA (2D)4.0 (1.9-4.0cm)Aortic Root3.0 (2.0-3.7cm) LVDs2.6 (2.5-4.0cm)LA (MM) (1.9-4.0cm)Aortic Cusp Exc1.8 (1.5-2.0cm) EF (%) 60.0 (55-70%)Rt. Atrium (1.9-4.0cm)Asc. Aorta3.3 cm IVSd1.4 (0.7-1.1cm)RV (D) (1.8-2.4cm) PWd1.5 (0.7-1.1cm) Mitral Valve MitralMitral Stenosis E wave0.72m/sMV Mean GR.2mmHg A wave1.25m/sMV Peak GR.9mmHg E/A ratio0.62D MVAcm2 DECEL [id number] 1/2 Timems Aortic Valve Aortic ValveAortic Stenosis V1m/Abhay Mean GR.16mmHg V22.81m/Abhay Peak GR.32mmHg LVOT Diameter2.2 (1.8-2.4cm)Doppler AVAcm2 Pulmonic Valve V21.44m/s Other Information Quality : LimitedRhythm : Technically limited study due to body habitus.patient position. Conclusion Technically adequate study. Sinus rhythm. Concentric LVH with left atrial enlargement. Valves are normal. EF of 60% with normal RV function. Doppler is unremarkable. Mild TR. No pericardial effusion masses or vegetations.
== END 2024-04-07 18:30 | disposition home or self-care (01) | DRG 686 ==
LOC: ER 04:20 → TELE 11:08 → TELE-WESTW 23:23
PROVIDERS: ADMIT Internal Medicine; ATTEND Internal Medicine
DX: C67.9 Malignant neoplasm of bladder, unspecified (principal); G93.41 Metabolic encephalopathy; N13.30 Unspecified hydronephrosis; Z68.41 Body mass index [BMI] 40.0-44.9, adult; N39.0 Urinary tract infection, site not specified; R31.0 Gross hematuria; I10 Essential (primary) hypertension; E11.9 Type 2 diabetes mellitus without complications; K59.00 Constipation, unspecified; I16.0 Hypertensive urgency; E66.01 Morbid (severe) obesity due to excess calories; N32.89 Other specified disorders of bladder; Z90.710 Acquired absence of both cervix and uterus; Z85.42 Personal history of malignant neoplasm of other parts of uterus; Z86.73 Personal history of transient ischemic attack (TIA), and cerebral infarction without residual deficits; Z79.4 Long term (current) use of insulin; Z79.899 Other long term (current) drug therapy
CPT/HCPCS: 36415; 70450; 71045; 74176; 76775; 80053; 80320; 81001; 83880; 84484; 85025; 85610; 85730; 93005; 93306; 96374; 96375; 97162; 99291; G0378; J2405

== ENCOUNTER 2024-04-12 17:00 | Emergency (ER) | payer OTHER ==
[~2024-04-12] VITALS: Ht 170.2 cm; Wt 118.0 kg
[~2024-04-12 17:00] MED LIST: AMLO1TAB23 PO; CEPH500C PO; HYDR-4902 PO; MET25T PO; NALO4SPR2
--- NOTE | 2024-04-12 17:31 | ED.PDOC ---
General HPI Comments HPI: Poor Historian. 74-year-old female presents to the emergency department for evaluation of a Duarte catheter that has not been draining urine most of the day. She denies any other associated symptoms. The Duarte catheter was placed this last for urinary retention. Urine color in the bag is normal Patient was discharged from the hospital last week with the followin. Bladder mass with hematuria and retroperitoneal as well as left iliac lymphadenopathy highly suspicious for malignancy, outpatient follow up with Dr. Cristino Chin 2. Gross hematuria status post three way catheter, status post CBI, currently resolved 3. Diabetes mellitus type 2 4. Hypertension 5. Morbid obesity class III Vitals: Temp: 98.5 F RR: 18 02 sat: 97% on room air HR: 63 BP: 176/51 PMH: 1. Bladder mass with hematuria and retroperitoneal as well as left iliac lymphadenopathy highly suspicious for malignancy, outpatient follow up with Dr. Cristino Chin 2. Gross hematuria status post three way catheter, status post CBI, currently resolved 3. Diabetes mellitus type 2 4. Hypertension 5. Morbid obesity class III PSH: hysterectomy Social history: denies tobacco use, denies ETOH use, denies drug use Meds: gabapentin, norco, aspirin, levothyroxine allergies: nkda REVIEW OF SYSTEMS: CONSTITUTIONAL: Denies acute: fever, diaphoresis, chills, generalized weakness. HEAD: Denies acute: headache, photophobia Eyes: Denies acute: Double vision, vision loss, eye pain, eye discharge. EARS: Denies acute: tinnitus, hearing loss, ear discharge, ear pain, THROAT: Denies acute: sore throat, swelling, difficulty swallowing , pain with swallowing, change in voice. NECK: Denies acute: neck pain, neck swelling, stiff neck. HEART: Denies acute : chest pain, palpitations, LUNGS: Denies acute: SOB, wheezing, cough, hemoptysis ABDOMEN: Denies acute: abdominal pain, Nausea, Vomiting, diarrhea, melena , hematemesis, hematochezia SKIN: Denies acute: rash, redness, lesions, itchiness. EXTREMITIES: Denies acute: calf pain, numbness, tingling, weakness, denies pain in extremity. Denies acute: Low back pain. Neuro: Denies acute: focal neurological deficit, motor or sensory focal neurological deficit, tremors, seizure like activity, confusion, dizziness, change in mental status, loss of bowel or bladder function, cauda equina like symptoms. : Denies acute: dysuria, hematuria, flank pain, increase in urinary frequency. PSYCH: Denies acute: hallucination, suicidal ideation, homicidal ideation. FEMALE: Denies acute: abnormal vaginal bleeding, foul odor, unusual discharge. PHYSICAL EXAM: General: no acute distress, awake and alert. Head: normocephalic, atraumatic. Neck: supple, trachea is midline, no swelling. Throat: Normal phonation. Eyes:, no erythema, no purulent discharge, no proptosis, no icterus. Heart: regular rate, regular rhythm, no significant murmur appreciated. Lungs: no apparent respiratory distress, Able to speak in full sentences. No wheezing, no rhonchi, no crackles. No stridors Clear to auscultation bilaterally. Abdomen: non tender to palpation, non distended, soft, no guarding, no rebound, + bowel sounds. Obese Neuro: Awake, Alert, oriented to name, self, situation, follows commands GCS=15. Speech is normal. Skin: no petechia, no purpura, no cyanosis, non-pale, not jaundice. Lower extremities: --no - Pitting edema no deformity, no focal swelling, no calf TTP. Makes eye contact. moves all four extremities. Face: no apparent facial droop. Ambulating in the ED independently. Time Seen by : 17:07 Reviewed notes: Nurses Notes, Medications, Allergies Allergies: Coded Allergies: NO KNOWN ALLERGIES (Unverified , 04/05/24) Home Meds Active Scripts Cephalexin Monohydrate (Cephalexin) 500 Mg Cap, 1 CAP PO TID for 3 Days, #9 CAP Prov:DIANA BOBO MD 04/07/24 Naloxone HCl (Narcan) 4 Mg/0.1 Ml Spr, 4 MG NA CARPET CUTTER, #2 SPRAY Prov:DIANA BOBO MD 04/07/24 Hydrocodone-Acetaminophen (Hydrocodone Bitartrate/AC 5-325 mg) 1 Tab Tab, 1 TAB PO Q8HP PRN, #10 TAB Prov:DIANA BOBO MD 04/07/24 Metoprolol Tartrate (Lopressor) 25 Mg Tb, 25 MG PO BID, #60 TAB Prov:DIANA BOBO MD 04/07/24 Amlodipine Besylate (Amlodipine Besylate) 10 Mg Tab, 1 TAB PO DAILY, #30 TAB 5 Refills Prov:DIANA BOBO MD 04/07/24 Information Source: Patient Past Medical History PAST MEDICAL HISTORY: HTN Surgical History: Hysterectomy [employer] EMPLOYMENT PAR[employer] History: Denies all [employer] AND EMPLOYMENT [employer] Hx Family History Family History: Unknown Social History Smoker: Non-Smoker Alcohol: Denies ETOH Use Drugs: Denies Drug Use Lives In: Home Was a procedure done? Was a procedure done?: No Differential Diagnosis Kidney stone (Female): N/A Urinary Problem (Female): Pyelonephritis, Urinary retention, Urolithiasis, UTI X-Ray, Labs, Meds, VS Vital Signs Date Time Temp Pulse Resp B/P (MAP) Pulse Ox O2 Delivery O2 Flow Rate FiO2 04/12/24 23:09 99.5 58 16 164/71 (102) 97 99.5 04/12/24 23:09 58 16 97 Room Air 04/12/24 22:59 60 18 96 Room Air* 0 21 04/12/24 17:29 98.5 63 18 176/51 (92) 97 Lab Test 04/12/24 18:14 Range/Units White Blood Count 10.1 4.4-10.8 10^3/uL Red Blood Count 3.84 L 4.0-5.20 10^6/uL Hemoglobin 12.1 L 12.2-16.2 g/dL Hematocrit 35.8 L 36.0-46.0 % Mean Corpuscular Volume 93.4 80.0-100.0 fL Mean Corpuscular Hemoglobin 31.4 28.0-32.0 pg Mean Corpuscular Hemoglobin Concent 33.6 32.0-36.0 g/dL Red Cell Distribution Width 13.8 11.8-14.3 % Platelet Count 366 140-450 10^3/uL Mean Platelet Volume 8.0 6.9-10.8 fL Neutrophils (%) (Auto) 69.6 37.0-80.0 % Lymphocytes (%) (Auto) 19.1 10.0-50.0 % Monocytes (%) (Auto) 8.9 0.0-12.0 % Eosinophils (%) (Auto) 1.5 0.0-7.0 % Basophils (%) (Auto) 0.9 0.0-2.0 % Neutrophils # (Auto) 7.0 1.6-8.6 10 ^3/uL Lymphocytes # (Auto) 1.9 0.4-5.4 10 ^3/uL Monocytes # (Auto) 0.9 0-1.3 10 ^3/uL Eosinophils # (Auto) 0.2 0-0.8 10 ^3/uL Basophils # (Auto) 0.1 0-0.2 10 ^3/uL Nucleated Red Blood Cells 0.0 % Sodium Level 139 136-145 mmol/L Potassium Level 4.8 3.5-5.1 mmol/L Chloride Level 109 H 98-107 mmol/L Carbon Dioxide Level 23 20-31 mmol/L Anion Gap 7 5-15 Blood Urea Nitrogen 25 H 9-23 mg/dL Creatinine 1.94 #H 0.550-1.02 mg/dL Glomerular Filtration Rate Calc 27 >90 mL/min BUN/Creatinine Ratio 12.9 10.0-20.0 Serum Glucose 126 H 74-106 mg/dL Calcium Level 9.4 8.7-10.4 mg/dL Total Bilirubin 0.3 0.2-1.0 mg/dL Aspartate Amino Transferase (AST) 12 L 13-40 U/L Alanine Aminotransferase (ALT) 10 7-40 U/L Alkaline Phosphatase 69 46-116 U/L Total Protein 6.9 5.7-8.2 g/dL Albumin 3.8 3.2-4.8 g/dL Time of 1ST Reevaluation: 21:59 (Nurse went to flush the Duarte catheter however the patient declined flushing and said that she has already been draining and she does not need any intervention at this time.) Reevaluation 1ST: Resolved Time of 2ND Reevaluation: 23:39 (Later in the course the patient agreed to get her Duarte catheter flushed. Please see the nurse's notes for flushing the Duarte catheter. And does not working. Patient was discharged home in a stable condition.) Patient Education/Counseling: Diagnosis, Treatment Family Education/Counseling: No Family Present Comments Patient presented with the above HPI.---Duarte catheter obstruction---workup was initiated. patient was found with the above mentioned diagnosis. Patient ED course and VS have been stabilized. Patient has been reassessed in the ED and remained in a stable condition. Pertinent incidental findings were discussed with the patient and/or family. Patient/family voices understanding and is agreeable with plan. Patient has been observed in the ED adequate length of time to insure improvement/stability. patient was discharged home in a stable condition. All the reports of any imaging studies that were ordered by myself were reviewed by myself. Departure 1 Departure Time of Disposition: 22:00 Impression: Primary Impression: Obstructed Duarte catheter Disposition: HOME / SELF CARE / HOMELESS Condition: Stable Additional Instructions: Additional discharge instructions: You MUST follow-up with your primary care/family doctor in 1 to 2 days. If you are unable to see your primary care/family doctor, please return to our emergency room for re-assessment and re-evaluation in 1 to 2 days. Return to the emergency room here in our facility or to the nearest ER [facility] if your symptoms change or worsen. CONSULTATIONS: you MUST Follow-up for consultation as soon as possible with: -urology in 1-2 days. Please call for appointment. You MUST call the consultants office yourself to make an appointment. You may need to arrange that through your insurance and/or your primary/family doctor. If you are unable to see the finance consultant in 1 to 2 days, you must return to our emergency room (or any other ER of your choice) for re-assessment and re- evaluation. Adequate fluid hydration. Discharged With: Self Critical Care Note Critical Care Time?: No I personally scribed for CODY SCHNEIDER DO ([email or web address]) on 04/12/24 at 17:37. Electronically submitted by Elroy Mcguire ([email or web address]). I personally scribed for CODY SCHNEIDER DO ([email or web address]) on 04/12/24 at 17:38. Electronically submitted by Chad Moore ([email or web address]). I personally scribed for CODY SCHNEIDER DO ([email or web address]) on 04/12/24 at 17:43. Electronically submitted by Elroy Mcguire ([email or web address]). CODY SCHNEIDER DO Apr 12, 2024 17:31
[2024-04-12 18:26] LABS: Basophils # (auto) 0.1 10 ^3/uL (0-0.2); Basophils % (auto) 0.9 % (0.0-2.0); Eosinophils # (auto) 0.2 10 ^3/uL (0-0.8); Eosinophils % (auto) 1.5 % (0.0-7.0); Hematocrit 35.8 % (36.0-46.0); Hemoglobin 12.1 g/dL (12.2-16.2); Lymphocytes # (auto) 1.9 10 ^3/uL (0.4-5.4); Lymphocytes % (auto) 19.1 % (10.0-50.0); Mean Corpuscular Hemoglobin 31.4 pg (28.0-32.0); Mean Corpuscular Hgb Conc. 33.6 g/dL (32.0-36.0); Mean Corpuscular Volume 93.4 fL (80.0-100.0); Monocytes # (auto) 0.9 10 ^3/uL (0-1.3); Monocytes % (auto) 8.9 % (0.0-12.0); Neutrophils % (auto) 69.6 % (37.0-80.0); Platelet Count (auto) 366 10^3/uL (140-450); Red Blood Cells 3.84 10^6/uL (4.0-5.20); Red Cell Distribution Width 13.8 % (11.8-14.3); White Blood Cell 10.1 10^3/uL (4.4-10.8)
[2024-04-12 18:50] LABS: Alanine Aminotransferase 10 U/L (7-40); Albumin 3.8 g/dL (3.2-4.8); Alkaline Phosphatase 69 U/L (46-116); Anion Gap 7 (5-15); BUN/Creatinine Ratio 12.9 (10.0-20.0); Calcium 9.4 mg/dL (8.7-10.4); Carbon Dioxide 23 mmol/L (20-31); Potassium 4.8 mmol/L (3.5-5.1); Sodium 139 mmol/L (136-145); Total Protein 6.9 g/dL (5.7-8.2)
[2024-04-12 18:51] LABS: Aspartate Aminotransferase 12 U/L (13-40); Bilirubin, Total 0.3 mg/dL (0.2-1.0); Blood Urea Nitrogen 25 mg/dL (9-23); Chloride 109 mmol/L (98-107); Glucose 126 mg/dL (74-106)
[2024-04-12 22:59] VITALS: PULSE 60; RESP 18; O2SAT 96
[2024-04-12 23:09] VITALS: BP 164/71; PULSE 58; RESP 16; TEMP 99.5; O2SAT 97
== END 2024-04-12 23:12 | disposition home or self-care (01) ==
LOC: ER 17:00
DX: T83.098D Other mechanical complication of other urinary catheter, subsequent encounter (principal); I10 Essential (primary) hypertension; E11.9 Type 2 diabetes mellitus without complications; E66.813 Obesity, class 3; Z68.41 Body mass index [BMI] 40.0-44.9, adult; Z90.710 Acquired absence of both cervix and uterus; Z79.899 Other long term (current) drug therapy; Y92.89 Other specified places as the place of occurrence of the external cause
CPT/HCPCS: 36415; 80053; 85025

== ENCOUNTER 2024-05-06 16:27 | Emergency (ER) | payer OTHER ==
[~2024-05-06] VITALS: Ht 160 cm; Wt 115.3 kg
--- NOTE | 2024-05-06 17:34 | ECG ---
[facility] Test Date: 2024-05-06 Test Time: 16:59:16 Pat Name: DANN THOMPSON Department: ER Room: Gender: F Cooker Sulfite: GIANCARLO : 1950 Requested By: SHIVANI ANDREWS Order Number: [id number] Reading MD: Al Alcaraz Measurements Intervals [place] Rate: 70 P: 64 WV: 172 QRS: 11 QRSD: 95 T: 188 QT: 380 QTc: 410 Interpretive Statements Sinus rhythm Probable left atrial enlargement LVH with secondary repolarization abnormality Anterior infarct, old Electronically Signed On 05-07-2024 14:48:30 PST by Al Alcaraz Please click the below link to view image of tracing.
[2024-05-06] MEDS: cloNIDine HCL 0.1 MG TAB PO ONE (18:21)
[2024-05-06 19:28] VITALS: BP 151/51; TEMP 98.1
[2024-05-06 19:30] VITALS: PULSE 60; RESP 16; O2SAT 99
[2024-05-06] MEDS ORDERED: CLON0.2T PO (20:01)
--- NOTE | 2024-05-06 20:01 | ED.PDOC ---
History of Present Illness HPI Comments Patient is a very pleasant but severely morbidly obese 74-year-old female who arrives to the ED today for evaluation of her Duarte catheter. Patient states she has had leakage at the urethra and at the bag. Patient arrives with a blood pressure of 172/99. Patient states she has hypertension and that her blood pressure is usually well controlled. Patient has the Duarte catheter in place due to a bladder outlet obstruction concern. Patient is seeing a urologist and primary care provider. Chief Complaint: Urinary Time Seen by MD: 16:45 Reviewed Notes: Nurses Notes Allergies: Coded Allergies: NO KNOWN ALLERGIES (Unverified , 04/05/24) Home Meds Active Scripts Cephalexin Monohydrate (Cephalexin) 500 Mg Cap, 1 CAP PO TID for 3 Days, #9 CAP Prov:DIANA BOBO MD 04/07/24 Naloxone HCl (Narcan) 4 Mg/0.1 Ml Spr, 4 MG NA VERTICAL CONTOUR BAND SAW OPERATOR, #2 SPRAY Prov:DIANA BOBO MD 04/07/24 Hydrocodone-Acetaminophen (Hydrocodone Bitartrate/AC 5-325 mg) 1 Tab Tab, 1 TAB PO Q8HP PRN, #10 TAB Prov:DIANA BOBO MD 04/07/24 Metoprolol Tartrate (Lopressor) 25 Mg Tb, 25 MG PO BID, #60 TAB Prov:DIANA BOBO MD 04/07/24 Amlodipine Besylate (Amlodipine Besylate) 10 Mg Tab, 1 TAB PO DAILY, #30 TAB 5 Refills Prov:DIANA BOBO MD 04/07/24 Information Source: Patient Mode of Arrival: Ambulatory Severity: Moderate Timing: Days Duration: Since onset Prehospital treatment: None Past Medical History PAST MEDICAL HISTORY: HTN Past Medical History (Other): Currently experiencing bladder outlet obstruction. 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: Denies all [employer] OF [employer] Hx Family History Family History: Unknown Social History Smoker: Non-Smoker Alcohol: Denies ETOH Use Drugs: Denies Drug Use Lives In: Home Constitutional: denies: chills, diaphoresis, fatigue, fever, malaise, sweats, weakness, others EENTM: denies: blurred vision, double vision, ear bleeding, ear discharge, ear drainage, ear pain, ear ringing, eye pain, eye redness, hearing loss, mouth pain, mouth swelling, nasal discharge, nose bleeding, nose congestion, nose pain, photophobia, tearing, throat pain, throat swelling, voice changes, others Respiratory: denies: cough, hemoptysis, orthopnea, SOB at rest, shortness of breath, SOB with excertion, stridor, wheezing, others Cardiovascular: denies: chest pain, dizzy spells, diaphoresis, Dyspnea on exertion, edema, irregular heart beat, left arm pain, lightheadedness, palpitations, PND, syncope, others Gastrointestinal: denies: abdomen distended, abdominal pain, blood streaked bowels, constipated, diarrhea, dysphagia, difficulty swallowing, hematemesis, melena, nausea, poor appetite, poor fluid intake, rectal bleeding, rectal pain, vomiting, others Genitourinary: denies: abnormal vagina bleeding, burning, dyspareunia, dysuria, flank pain, frequency, hematuria, incontinence, pain, , vagina discharge, urgency, others Neurological: denies: dizziness, fainting, headache, left sided numbness, left sided weakness, numbness, paresthesia, pre-existing deficit, right sided numbness, right sided weakness, seizure, speech problems, tingling, tremors, weakness, others Musculoskeletal: denies: back pain, gout, joint pain, joint swelling, muscle pain, muscle stiffness, neck pain, others Integumetry: denies: bruises, change in color, change in hair/nails, dryness, laceration, lesions, lumps, rash, wounds, others Allergic/Immunocompromised: denies: Difficulty Healing, Frequent Infections, Hives, Itching, others Hematologic/Lymphatic: denies: anemia, blood clots, easy bleeding, easy bruising, swollen glands, others Endocrine: denies: excessive hunger, excessive sweating, excessive thirst, excessive urination, flushing, intolerance to cold, intolerance to heat, unexplained weight gain, unexplained weight loss, others Psychiatric: denies: anxiety, bipolar disorder, depression, hopeless, panic disorder, schizophrenia, sleepless, suicidal, others Physical Exam General Appearance: No Apparent Distress (Patient was not in distress at time of evaluation.), Obese HEENT: Normal ENT Inspection, Pharynx Normal, TMs Normal Neck: Full Range of Motion, Non-Tender, Normal, Normal Inspection Respiratory: Chest Non-Tender, Lungs Clear, No Accessory Muscle Use, No Respiratory Distress, Normal Breath Sounds Cardiovascular: No Edema, No JVD, No Murmur, No Gallop, Normal Peripheral Pu lses, Regular Rate/Rhythm Breast Exam: Deferred Gastrointestinal: No Organomegaly, Non Tender, No Pulsatile Mass, Normal Bowel Sounds, Soft Genitalia: Other (Leaking Duarte catheter in place.), Deferred Pelvic: Deferred Rectal: Deferred Extremities: No calf tenderness, Normal capillary refill, Normal inspection, Normal range of motion, Non-tender, No pedal edema Neurologic: Alert, fruit express agent II-XII nml as Tested, No Motor Deficits, Normal Affect, Normal Mood, No Sensory Deficits Cerebellar Function: Normal Reflexes: Normal Skin: Dry, Normal Color, Warm Lymphatic: No Adenopathy Was a procedure done? Was a procedure done?: No Differential Dx Considerations may include: Duarte catheter dysfunction, hypertension X-Ray, Labs, Meds, VS Vital Signs Date Time Temp Pulse Resp B/P (MAP) Pulse Ox O2 Delivery O2 Flow Rate FiO2 05/06/24 19:30 60 16 99 Room Air* 0 21 05/06/24 19:28 151/51 05/06/24 19:28 98.1 60 16 151/51 (84) 99 98.1 05/06/24 18:21 238/81 05/06/24 16:59 70 05/06/24 16:55 98.9 84 20 172/99 (123) 98 Current Medications Medications (Trade) Dose Ordered Sig/Daron Route Start Time Stop Time Status Last Admin Clonidine HCl (Catapres Tablet) 0.2 mg ONCE ONCE PO 05/06/24 17:00 05/06/24 17:01 DC 05/06/24 18:21 X-Ray, Labs, Meds, VS Comment Patient's Duarte catheter was were placed and patient was given clonidine to return her blood pressure to an acceptable zone at time of discharge. EKG revealed a sinus rhythm with a rate of 70. Probable left atrial enlargement, LVH with secondary repolarization abnormality as well as an old anterior infarct. HI interval of 172 with a QT interval of 380. Advised patient she needs to follow up with the primary care provider for discussions related to her blood pressure management as well as continued conversation is related to her bladder outlet obstruction. Time of 1ST Reevaluation: 19:57 Reevaluation 1ST: Improved Consultation: PCP, Urology Patient Education/Counseling: Diagnosis, Treatment Family Education/Counseling: Diagnosis, Treatment Departure 1 Departure Time of Disposition: 19:58 Impression: Primary Impression: Duarte catheter problem Additional Impression: Elevated blood pressure reading Disposition: HOME / SELF CARE / HOMELESS Condition: Stable Additional Instructions: Advised patient utilize her clonidine what her systolic blood pressures above 160 or diastolic pressures above 90. Patient needs to follow up with primary care provider for discussions related to proper medication management of her hypertension as well as continuing evaluation of her bladder outlet obstruction concerns. e-Prescriptions Clonidine Hydrochloride (Clonidine Hcl) 0.2 Mg Tab 1 TAB PO BIDP PRN, #20 TAB 0 Refills To be used if systolic pressures above 160 or diastolic pressures above 90. Prov: SHIVANI ANDREWS PAC 05/06/24 Discharged With: Self, Friend Critical Care Note Critical Care Time?: No Stability Stability form required: No Heart Score Heart Score: Heart Score Response (Comments) Value History Slightly Suspicious 0 EKG Repolarization Disturb 1 Age >65 2 Risk Factors 1 or 2 risk factors 1 Troponin N/A 0 Total 4 SHIVANI ANDREWS PAC May 06, 2024 20:01
== END 2024-05-06 20:45 | disposition home or self-care (01) ==
LOC: ER 16:27
DX: T83.038A Leakage of other urinary catheter, initial encounter (principal); I10 Essential (primary) hypertension; Z79.899 Other long term (current) drug therapy; Z90.710 Acquired absence of both cervix and uterus; X58.XXXA Exposure to other specified factors, initial encounter
CPT/HCPCS: 51702; 93005

== ENCOUNTER 2024-05-12 16:33 | Emergency (ER) | payer OTHER ==
[~2024-05-12] VITALS: Ht 167.6 cm; Wt 102.0 kg
[~2024-05-12 16:33] MED LIST changes: +CLON0.2T PO
--- NOTE | 2024-05-12 19:34 | ED.PDOC ---
General HPI Comments This patient is a pleasant but morbidly obese 74-year-old female who arrives the ED today for evaluation of her Duarte catheter that has been leaking will since it was installed. Patient states she had urine retention issues last week and came to our facility for management. Patient was given a Duarte catheter and sent home with follow up instructions for her urologist. Patient states she has seen a urologist, but the Duarte catheter continues to leak. Patient is just requiring assistance with her catheter. Patient was hypertensive on arrival. Chief Complaint: Urinary Time Seen by MD: 17:36 Reviewed notes: Nurses Notes Allergies: Coded Allergies: NO KNOWN ALLERGIES (Unverified , 04/05/24) Home Meds Active Scripts Clonidine Hydrochloride (Clonidine Hcl) 0.2 Mg Tab, 1 TAB PO BIDP PRN, #20 TAB 0 Refills To be used if systolic pressures above 160 or diastolic pressures above 90. Prov:SHIVANI ANDREWS PAC 05/06/24 Cephalexin Monohydrate (Cephalexin) 500 Mg Cap, 1 CAP PO TID for 3 Days, #9 CAP Prov:DIANA BOBO MD 04/07/24 Naloxone HCl (Narcan) 4 Mg/0.1 Ml Spr, 4 MG NA [employer], #2 SPRAY Prov:DIANA BOBO MD 04/07/24 Hydrocodone-Acetaminophen (Hydrocodone Bitartrate/AC 5-325 mg) 1 Tab Tab, 1 TAB PO Q8HP PRN, #10 TAB Prov:DIANA BOBO MD 04/07/24 Metoprolol Tartrate (Lopressor) 25 Mg Tb, 25 MG PO BID, #60 TAB Prov:DIANA BOBO MD 04/07/24 Amlodipine Besylate (Amlodipine Besylate) 10 Mg Tab, 1 TAB PO DAILY, #30 TAB 5 Refills Prov:DIANA BOBO MD 04/07/24 Information Source: Patient Mode of Arrival: Ambulatory Severity: Mild Timing: Days Duration: Since onset Prehospital treatment: None Symptoms: Other (Leaking Duarte catheter) History of: Urinary obstruction Past Medical History PAST MEDICAL HISTORY: HTN Past Medical History (Other): Recent bladder outlet obstruction and currently on a Duarte Surgical History: Hysterectomy SKETCHER History: Denies all SKETCHER Hx Family History Family History: Unknown Social History Smoker: Non-Smoker Alcohol: Denies ETOH Use Drugs: Denies Drug Use Lives In: Home Constitutional: denies: chills, diaphoresis, fatigue, fever, malaise, sweats, weakness, others EENTM: denies: blurred vision, double vision, ear bleeding, ear discharge, ear drainage, ear pain, ear ringing, eye pain, eye redness, hearing loss, mouth pain, mouth swelling, nasal discharge, nose bleeding, nose congestion, nose pain, photophobia, tearing, throat pain, throat swelling, voice changes, others Respiratory: denies: cough, hemoptysis, orthopnea, SOB at rest, shortness of breath, SOB with excertion, stridor, wheezing, others Cardiovascular: denies: chest pain, dizzy spells, diaphoresis, Dyspnea on exertion, edema, irregular heart beat, left arm pain, lightheadedness, palpitations, PND, syncope, others Gastrointestinal: denies: abdomen distended, abdominal pain, blood streaked bowels, constipated, diarrhea, dysphagia, difficulty swallowing, hematemesis, melena, nausea, poor appetite, poor fluid intake, rectal bleeding, rectal pain, vomiting, others Genitourinary: reports: others (Leaking Duarte catheter); denies: abnormal vagina bleeding, burning, dyspareunia, dysuria, flank pain, frequency, hematuria, incontinence, pain, , vagina discharge, urgency Neurological: denies: dizziness, fainting, headache, left sided numbness, left sided weakness, numbness, paresthesia, pre-existing deficit, right sided numbness, right sided weakness, seizure, speech problems, tingling, tremors, weakness, others Musculoskeletal: denies: back pain, gout, joint pain, joint swelling, muscle pain, muscle stiffness, neck pain, others Integumetry: denies: bruises, change in color, change in hair/nails, dryness, laceration, lesions, lumps, rash, wounds, others Allergic/Immunocompromised: denies: Difficulty Healing, Frequent Infections, Hives, Itching, others Hematologic/Lymphatic: denies: anemia, blood clots, easy bleeding, easy bruising, swollen glands, others Endocrine: denies: excessive hunger, excessive sweating, excessive thirst, excessive urination, flushing, intolerance to cold, intolerance to heat, unexplained weight gain, unexplained weight loss, others Psychiatric: denies: anxiety, bipolar disorder, depression, hopeless, panic disorder, schizophrenia, sleepless, suicidal, others Physical Exam General Appearance: Mild Distress (Moderate distress due to Duarte catheter concerns.), Obese HEENT: Normal ENT Inspection, Pharynx Normal, TMs Normal Neck: Full Range of Motion, Non-Tender, Normal, Normal Inspection Respiratory: Chest Non-Tender, Lungs Clear, No Accessory Muscle Use, No Respiratory Distress, Normal Breath Sounds Cardiovascular: No Edema, No JVD, No Murmur, No Gallop, Normal Peripheral Pulses, Regular Rate/Rhythm Breast Exam: Deferred Gastrointestinal: No Organomegaly, Non Tender, No Pulsatile Mass, Normal Bowel Sounds, Soft Genitalia: Other (Functional but leaking Duarte catheter in place.), Deferred Pelvic: Deferred Rectal: Deferred Extremities: No calf tenderness, Normal capillary refill, Normal inspection, Normal range of motion, Non-tender, No pedal edema Neurologic: Alert, No Motor Deficits, Normal Affect, Normal Mood, No Sensory Deficits Cerebellar Function: Normal Reflexes: Normal Skin: Dry, Normal Color, Warm Lymphatic: No Adenopathy Was a procedure done? Was a procedure done?: No Differential Diagnosis Kidney stone (Female): Other (Malfunctioning Duarte catheter) X-Ray, Labs, Meds, VS Vital Signs Date Time Temp Pulse Resp B/P (MAP) Pulse Ox O2 Delivery O2 Flow Rate FiO2 05/12/24 17:05 98.6 101 20 180/70 (106) 97 X-Ray, Labs, Meds, VS Comment Patient was provided with a new Duarte catheter prior to discharge. Advised patient to continue follow up with her urologist for long-term management. Time of 1ST Reevaluation: 19:33 Reevaluation 1ST: Improved Consultation: PCP, Urology Patient Education/Counseling: Diagnosis, Treatment Family Education/Counseling: Diagnosis, Treatment Departure 1 Departure Time of Disposition: 19:34 Impression: Primary Impression: Duarte catheter problem Disposition: 01 HOME / SELF CARE / HOMELESS Condition: Stable Additional Instructions: Advised patient maintain follow up with her primary care provider and urologist. Discharged With: Self, Friend Critical Care Note Critical Care Time?: No Stability Stability form required: No Heart Score Heart Score: Heart Score Response (Comments) Value History N/A 0 EKG N/A 0 Age N/A 0 Risk Factors N/A 0 Troponin N/A 0 Total 0 SHIVANI ANDREWS PAC May 12, 2024 19:34
[2024-05-12 20:54] VITALS: BP 162/61; PULSE 54; RESP 20; TEMP 98.1; O2SAT 99
== END 2024-05-12 20:58 | disposition home or self-care (01) ==
LOC: ER 16:33
DX: T83.038A Leakage of other urinary catheter, initial encounter (principal); I10 Essential (primary) hypertension; E66.9 Obesity, unspecified; Z68.36 Body mass index [BMI] 36.0-36.9, adult; Z90.710 Acquired absence of both cervix and uterus
CPT/HCPCS: 51702